=== PATIENT | male | born 1985 | race African-American/Black ===

== ENCOUNTER 2019-06-06 21:36 | Emergency (ER) | payer OTHER ==
[~2019-06-06] VITALS: Ht 175.3 cm; Wt 72.7 kg
[2019-06-06] MEDS ORDERED: LIDOCAINE 2% MDV 20 ML VIAL SC ONE (22:30)
[2019-06-06] MEDS ORDERED: ADACEL/BOOSTRIX VACCINE (DIPHTH/PERTUSS/ACELL/TETANUS)0.5ML SYR (90715) IM ONE (22:45)
[2019-06-06] MEDS ORDERED: CEPHALEXIN 500 MG CAP PO ONE (22:45)
[2019-06-06] MEDS ORDERED: KEFL500C17 PO (22:53)
[2019-06-06] MEDS ORDERED: NEOSPORIN OINT 0.9 GM PKT (FLOOR STOCK) TOP ONE (23:00)
[2019-06-06 23:34] VITALS: BP 126/78
== END 2019-06-06 23:35 | disposition home or self-care (01) ==
LOC: M ED 21:36
DX: S01.311A Laceration without foreign body of right ear, initial encounter (principal); Y04.0XXA Assault by unarmed brawl or fight, initial encounter; Y92.149 Unspecified place in prison as the place of occurrence of the external cause